=== PATIENT | male | born 1990 | race Hispanic/Latino ===

== ENCOUNTER 2023-04-08 17:57 | Emergency (ER) | payer MEDICAID, SELFPAY ==
[2023-04-08 18:09] VITALS: BP 217/135; PULSE 101; RESP 16; TEMP 37.6; O2SAT 97; BMI 40.7
[2023-04-08 19:00] LABS: Strep Grp A by PCR Rapid Positive (Negative)
[2023-04-08 19:45] VITALS: PULSE 86; O2SAT 97
[2023-04-08 19:46] VITALS: BP 212/126; PULSE 89; O2SAT 94
--- NOTE | 2023-04-08 19:58 | ED.GENADULT ---
HPI - General Adult General Chief complaint: Upper Respiratory Symptoms Stated complaint: sore and swollen rt jaw Time Seen by Provider: 04/08/23 19:58 Source: patient Mode of arrival: Ambulatory History of Present Illness HPI narrative: Patient is a 32-year-old male who started to have a sore throat and swelling on the right side of his jaw that started yesterday. Has been taking ibuprofen without any improvement. No problems swallowing but it is painful to swallow. No problems breathing. No fevers. Related Data Previous Rx's Medication Instructions Recorded lisinopril 40 mg tablet 40 mg PO QDAY #90 tabs 04/21/17 metoprolol tartrate 25 mg tablet 25 mg PO BID #60 tabs 04/21/17 penicillin V potassium 500 mg 500 mg PO BID 10 days #20 tabs 04/08/23 tablet Allergies Allergy/AdvReac Type Severity Reaction Status Date / Time No Known Drug Allergies Allergy Verified 04/08/23 18:13 Review of Systems Constitutional Constitutional: Reports system reviewed and no additional complaints, except as documented ENT Ears, Nose, Mouth, and Throat: Reports system reviewed and no additional complaints, except as documented Respiratory Respiratory: Reports system reviewed and no additional complaints, except as documented Integumentary/Breasts Skin/Breast: Reports system reviewed and no additional complaints, except as documented Patient History Medical History Bipolar disorder Hypertension Stroke (~2014) Vertebral artery dissection Family History (Updated 10/01/16 @ 00:00 by Conversion Provider) Father Age: 52 Hypertension High cholesterol Mother Age: 49 Heart disease Social History Smoking Status: Current every day smoker Smoking Status: Current every day smoker alcohol intake frequency: a few times a month Substance Use Type: does not use Exam Initial Vital Signs Initial Vital Signs: Vital Signs Temperature 99.7 F H 04/08/23 18:09 Pulse Rate 101 H 04/08/23 18:09 Respiratory Rate 16 04/08/23 18:09 Blood Pressure 217/135 H 04/08/23 18:09 Pulse Oximetry 97 04/08/23 18:09 Oxygen Delivery Method Room Air 04/08/23 18:09 Const General: cooperative and comfortable HENMT Head: normal to inspection Mouth: oral mucosae normal Throat: posterior oropharynx abnormal edema, erythema and exudates Resp Effort & Inspection: normal respiratory effort Skin General: no rashes or lesions noted Neuro General: patient alert, patient awake and moves all extremities Course Orders Ordered: ED Orders 04/08/23 18:16 Strep Grp A by PCR Rapid Stat Throat Culture Stat 04/08/23 20:14 Consult to STORE CASHIER - Insurance Verification Specialist Stat Discontinued Medications Dexamethasone (Dexamethasone 4 Mg Tablet) 12 mg PO NOW ONE Stop: 04/08/23 20:00 Last Admin: 04/08/23 20:07 Dose: 12 mg Documented By: PARAG Penicillin V Potassium (Penicillin Vk 250 Mg Tablet) 500 mg PO NOW ONE Stop: 04/08/23 20:00 Last Admin: 04/08/23 20:07 Dose: 500 mg Documented By: PARAG Vital Signs Vital signs: Vital Signs - 8 hr 04/08/23 18:09 04/08/23 19:45 04/08/23 19:46 Temperature 99.7 F H Pulse Rate 101 H 86 Respiratory Rate 16 Blood Pressure 217/135 H 212/126 H Pulse Oximetry 97 97 Oxygen Delivery Method Room Air 04/08/23 19:46 04/08/23 20:00 04/08/23 20:00 Temperature Pulse Rate 89 87 Respiratory Rate Blood Pressure 208/122 H Pulse Oximetry 94 96 Oxygen Delivery Method 04/08/23 20:07 04/08/23 20:07 04/08/23 20:09 Temperature Pulse Rate 85 Respiratory Rate Blood Pressure 209/125 H 213/128 H Pulse Oximetry 96 Oxygen Delivery Method 04/08/23 20:09 Temperature Pulse Rate 87 Respiratory Rate Blood Pressure Pulse Oximetry 97 Oxygen Delivery Method Room Air Medical Decision Making Lab Data Lab results reviewed: Yes I reviewed the patient's lab results. Labs: Lab Results 04/08/23 Range/Units 18:16 Group A Strep (PCR) Positive H (Negative) MDM Narrative Medical decision making narrative: Patient is positive for strep throat. Low suspicion for peritonsillar/retropharyngeal abscess given his presentation today. Discussed options to include IM Bicillin versus oral antibiotics in the patient opted for the oral antibiotics. Will discharge patient home with a prescription. He was given a 1st dose here in the ER. He was also given steroids. He was given return precautions. He expressed understanding and agreement. Discharge Plan Departure Patient Disposition: Home Clinical Impression: Strep pharyngitis Instructions: DI for Strep Throat Activity Restrictions/Additional Instructions: I do recommend that you keep hydrated. Continue to take all of your medications as directed. Return to the emergency department for new or worsening symptoms. Prescriptions: New penicillin V potassium 500 mg tablet 500 mg PO BID 10 Days Qty: 20 0RF No Action lisinopril 40 MG tablet 40 mg PO QDAY Qty: 90 4RF metoprolol tartrate 25 MG tablet 25 mg PO BID Qty: 60 1RF Stand Alone Forms: Patient Portal/API, Work Release Note
[2023-04-08 20:00] VITALS: BP 208/122; PULSE 87; O2SAT 96
[2023-04-08 20:07] VITALS: BP 209/125; PULSE 85; O2SAT 96
[2023-04-08] MEDS: dexAMETHasone 4 MG TABLET 12 MG PO (20:07)
[2023-04-08] MEDS: PENICILLIN VK 250 MG TABLET 500 MG PO (20:07)
[2023-04-08 20:09] VITALS: BP 213/128; PULSE 87; O2SAT 97
--- NOTE | 2023-04-08 20:14 | PC.NURSE ---
Discussed hypertension w/ pt. He states he stopped taking meds during Covid and he also used to see Dr. Kelly who retired. [employer]PERVIS[employer] referral made to get PCP appointment to follow up.
--- NOTE | 2023-04-11 15:48 | CM.SWNOTE ---
ED PET FOOD DEBONER f/u Note PET FOOD DEBONER calls PCP clinic and schedules ED f/u appt for patient with Dr. Hedrick on Friday04/15/23 @ 10 AM. PET FOOD DEBONER left VM with patient yesterday and PET FOOD DEBONER awaited response. PET FOOD DEBONER called back patient today and spoke with patient, he confirmed appt and states he received a text message regarding the appt. Plan: patient to f/u with ED f/u PCP appt on 04/15/23. BELINDA De Anda
== END 2023-04-08 20:34 | disposition home or self-care (01) ==
PROVIDERS: Emergency Provider Emergency Medicine; Family Provider Family Medicine
DX: J02.0 Streptococcal pharyngitis (principal)
CPT/HCPCS: 87070; 87651; 99283

== ENCOUNTER 2023-11-11 04:12 | Emergency (ER) | payer MEDICAID, SELFPAY ==
[2023-11-11] VITALS (12 sets, daily range): BP systolic 206–239; BP diastolic 126–145; PULSE 77–98; RESP 18; TEMP 36.8; O2SAT 92–97; BMI 45.4
--- NOTE | 2023-11-11 04:20 | ED.GENADULT ---
HPI - General Adult General Chief complaint: Headache Stated complaint: pain on left side of the head, bp 235/135 Time Seen by Provider: 11/11/23 04:15 Source: patient Mode of arrival: Ambulatory Limitations: no limitations History of Present Illness HPI narrative: Patient is a 33-year-old male. Has a diagnosis of hypertension. At 1 point he was on both lisinopril and metoprolol. He has not been on these medicines for several years. He states he just ran out of the medicines and never went back to his primary doctor. He is here for evaluation of a left-sided headache. He states it was gradual onset that started several days ago. Tylenol has helped his head ache but he did not take any Tylenol today. No fevers. No balance issues. He states he has had a stroke in the past. No residual deficits from the stroke. Not on blood thinners. No chest pain, shortness of breath, lower extremity swelling. He states that this evening he just had a difficult time sleeping is what brought him into the emergency department today. Related Data Previous Rx's Medication Instructions Recorded lisinopril 40 mg tablet 40 mg PO QDAY #90 tabs 04/21/17 metoprolol tartrate 25 mg tablet 25 mg PO BID #60 tabs 04/21/17 lisinopril 20 mg tablet 20 mg PO DAILY #60 tabs 11/11/23 Allergies Allergy/AdvReac Type Severity Reaction Status Date / Time No Known Drug Allergies Allergy Verified 04/08/23 18:13 Review of Systems Constitutional Constitutional: Reports system reviewed and no additional complaints, except as documented Cardiovascular Cardiovascular: Reports system reviewed and no additional complaints, except as documented Respiratory Respiratory: Reports system reviewed and no additional complaints, except as documented Gastrointestinal Gastrointestinal: Reports system reviewed and no additional complaints, except as documented Musculoskeletal Musculoskeletal: Reports system reviewed and no additional complaints, except as documented Hematologic/Lymphatic On Anticoagulants: No Patient History Medical History Bipolar disorder Vertebral artery dissection Stroke (~2014) Hypertension Family History (Updated 10/01/16 @ 00:00 by Conversion Provider) Father Age: 53 Hypertension High cholesterol Mother Age: 50 Heart disease Social History Smoking Status: Current every day smoker Smoking Status: Current every day smoker alcohol intake frequency: a few times a month Substance Use Type: does not use Exam Initial Vital Signs Initial Vital Signs: Vital Signs Pulse Rate 96 H 11/11/23 04:17 Pulse Oximetry 97 11/11/23 04:17 Const General: cooperative, comfortable and No ill appearing Resp Effort & Inspection: normal respiratory effort Auscultation: clear to auscultation bilaterally Cardio Rate: regular rate Rhythm: regular rhythm Neuro General: patient alert, patient awake, patient oriented x3 and moves all extremities Cognition: normal cognition Speech: speech normal Gait: normal gait Extrem General: normal to inspection and capillary refill normal Course Orders Ordered: ED Orders 11/11/23 04:28 CT head/brain wo con Stat Vital Signs Vital signs: Vital Signs - 8 hr 11/11/23 04:17 11/11/23 04:19 11/11/23 04:19 Temperature Pulse Rate 96 H 98 H Respiratory Rate Blood Pressure 223/145 H Pulse Oximetry 97 96 Oxygen Delivery Method 11/11/23 04:21 11/11/23 04:30 11/11/23 04:30 Temperature 98.2 F Pulse Rate 94 H 80 Respiratory Rate 18 Blood Pressure 223/145 H 228/133 H Pulse Oximetry 95 92 Oxygen Delivery Method Room Air 11/11/23 04:38 11/11/23 04:38 11/11/23 04:58 Temperature Pulse Rate 84 83 Respiratory Rate Blood Pressure 227/133 H Pulse Oximetry 95 94 Oxygen Delivery Method 11/11/23 04:58 11/11/23 05:00 11/11/23 05:01 Temperature Pulse Rate 80 Respiratory Rate Blood Pressure 239/136 H 228/140 H Pulse Oximetry 95 Oxygen Delivery Method 11/11/23 05:01 11/11/23 05:30 11/11/23 05:31 Temperature Pulse Rate 80 77 Respiratory Rate Blood Pressure 220/128 H Pulse Oximetry 93 94 Oxygen Delivery Method 11/11/23 05:31 11/11/23 06:00 11/11/23 06:01 Temperature Pulse Rate 78 78 Respiratory Rate Blood Pressure 206/126 H Pulse Oximetry 93 92 Oxygen Delivery Method 11/11/23 06:01 Temperature Pulse Rate 80 Respiratory Rate Blood Pressure Pulse Oximetry 93 Oxygen Delivery Method Medical Decision Making Imaging Data CT scan - head: Radiologist's Impression: No CT evidence of acute intracranial pathology MDM Narrative Medical decision making narrative: Patient is hypertensive today. His headache has actually been going on for several days. His head CT is unremarkable. The rest of his neurologic exam is unremarkable as well. No fevers. No chest pain. No shortness of breath. Not clinically in heart failure. We discussed his hypertension. He should be back on his lisinopril. He was on 40 mg in the past but since he has been off of it for several years we will start him on 20 mg a day. He was also given phone number to call in order to establish a primary care doctor. We discussed the importance of taking his blood pressure at home and recording these values. During his time here he stated that his headache actually resolved. He was able to sleep for awhile. This was out specific intervention here in the ER. Will discharge patient home with return precautions. He expressed understanding and agreement with plan. Discharge Plan Departure Patient Disposition: Home Clinical Impression: Hypertension, Headache Instructions: High Blood Pressure Activity Restrictions/Additional Instructions: I recommend that you use the number on the car that you were given an order to establish a primary doctor. Is also important that you take your blood pressure at home like we discussed. We are going to start you back on lisinopril at 20 mg a day. This may need to be increased once you follow-up with your primary doctor. Return to the emergency department for new or worsening symptoms. Prescriptions: New lisinopril 20 mg tablet 20 mg PO DAILY Qty: 60 3RF No Action lisinopril 40 MG tablet 40 mg PO QDAY Qty: 90 4RF metoprolol tartrate 25 MG tablet 25 mg PO BID Qty: 60 1RF Stand Alone Forms: Patient Portal/API
--- NOTE | 2023-11-11 04:28 | DI.CT.S_ITS ---
PROCEDURE: CT HEAD/BRAIN WO CON INDICATIONS: L sided headache with HTN TECHNIQUE: Noncontrast 4.5 mm thick angled axial sections acquired from the foramen magnum to the vertex, with coronal and sagittal reformats. For radiation dose reduction, the following was used: automated exposure control, adjustment of mA and/or kV according to patient size. COMPARISON: [facility], CT, HEAD WITHOUT CONTRAST, 08/06/2015, 8:24. FINDINGS: Image quality: Diagnostic. CSF spaces: Basal cisterns are patent. No extra-axial fluid collections. Ventricles are normal in size and shape. Brain: No midline shift. No intracranial masses or hemorrhage. Steele-white matter interface is normal. Skull and face: Calvarium and visualized facial bones are intact, without suspicious lesions. Sinuses: Visualized sinuses and mastoids are clear. IMPRESSION: CT head without acute intracranial abnormalities. No mass or mass effect visualized. No significant discrepancy with the warehouse supervisor 3rd shift radiology preliminary report. Dictated by: Abhijit Martel M.D. on 11/11/2023 at 7:32 Approved by: Abhijit Martel M.D. on 11/11/2023 at 7:33
== END 2023-11-11 06:31 | disposition home or self-care (01) ==
PROVIDERS: Emergency Provider Emergency Medicine; Family Provider Family Medicine
DX: I10 Essential (primary) hypertension (principal); R51.9 Headache, unspecified
CPT/HCPCS: 70450; 99283; 99284

== ENCOUNTER → 2023-11-26 11:59 | Outpatient (CLI) | payer MEDICAID, SELFPAY ==
[2023-11-26 12:48] LABS: Add Manual Diff / Slide Review NO; Basophils Absolute Auto 100 /uL (0-100); Basophils Percent Auto 0.9 % (0-2); Eosinophils Absolute Auto 100 /uL (0-450); Hematocrit 47.2 % (41-53); Hemoglobin 16.5 g/dL (13.5-17.5); Lymphocytes Absolute Auto 2500 /uL (1100-4500); Lymphocytes Percent Auto 37.1 % (25-40); Mean Corpuscular Hemoglobin 29.5 PG (26-34); Mean Corpuscular Volume 84.4 fL (80-100); Monocytes Absolute Auto 500 /uL (0-900); Monocytes Percent Auto 7.2 % (3-14); Neutrophils Absolute Auto 3600 /uL (1500-7000); Neutrophils Percent Auto 52.8 % (50-75); Platelet Count 236 X10^3/uL (150-400); Red Cell Distribution Width 13.1 % (11.6-14.8); White Blood Cell Count 6.9 X10^3/uL (4.5-11.0)
[2023-11-26 12:56] LABS: Hemoglobin A1C% w Est Avg Glu 5.6 % (4.0-6.0)
[2023-11-26 13:24] LABS: Alanine Aminotransferase 119 IU/L (<50); Albumin 4.5 g/dL (3.5-5.0); Albumin Globulin Ratio 1.3 (1.0-2.8); Alkaline Phosphatase 83 U/L (38-126); Aspartate Aminotransferase 65 IU/L (17-59); BUN Creatinine Ratio 15.9 (6-22); Blood Urea Nitrogen 11 mg/dL (9-20); Calcium 9.5 mg/dL (8.4-10.2); Carbon Dioxide 29 mmol/L (22-32); Chloride 97 mmol/L (98-107); Cholesterol 225 mg/dL (140-199); Estimated Glomerular Filt Rate > 60 mL/min (>60); Globulin 3.5 g/dL (1.7-4.1); Glucose 107 mg/dL (70-100); HDL Cholesterol 44 mg/dL (40-60); HEMOLYSIS < 15 (0-50); LDL Cholesterol Calculated 146 mg/dL (<100); Potassium 3.8 mmol/L (3.4-5.1); Sodium 137 mmol/L (137-145); Triglycerides 173 mg/dL (35-150)
[2023-11-27 11:55] LABS: HIV 1 & 2 Ab/Ag 4th Gen Combo NEGATIVE (NEGATIVE); Hep C Virus Ab w/Reflex Quant NEGATIVE s/c (NEGATIVE)
== END ==
PROVIDERS: Family Provider Family Medicine; PCP Family Medicine; Referring Provider Family Medicine; Visit Provider Family Medicine
DX: I10 Essential (primary) hypertension (principal); I77.9 Disorder of arteries and arterioles, unspecified; E66.01 Morbid (severe) obesity due to excess calories; Z68.41 Body mass index [BMI] 40.0-44.9, adult; Z13.220 Encounter for screening for lipoid disorders; Z11.59 Encounter for screening for other viral diseases; Z11.4 Encounter for screening for human immunodeficiency virus [HIV]; Z13.1 Encounter for screening for diabetes mellitus
CPT/HCPCS: 36415; 80053; 80061; 83036; 85025; 86803; 87389